=== PATIENT | female | born 1985 | race Caucasian/White ===

== ENCOUNTER 2017-06-21 18:14 | Emergency (ER) | payer SELFPAY ==
[2017-06-21 18:15] VITALS: BP 167/92
[2017-06-21 18:22] VITALS: BMI 23.1
[2017-06-21 19:10] LABS: BILIRUBIN,URINE NEGATIVE (NEGATIVE); BLOOD/HEMOGLOBIN,URINE NEGATIVE (NEGATIVE); GLUCOSE, URINE NEGATIVE (NEGATIVE); KETONES,URINE NEGATIVE (NEGATIVE); LEUKOCYTE ESTERASE ,URINE 1+ (NEGATIVE); NITRITES,URINE POSITIVE (NEGATIVE); PROTEIN,URINE NEGATIVE (NEGATIVE); UROBILINOGEN,URINE NORMAL (NORMAL)
[2017-06-21 19:16] LABS: COLOR,URINE YELLOW (YELLOW)
[2017-06-21 19:17] LABS: APPEARANCE,URINE SLIGHTLY HAZY (CLEAR); BACTERIA,URINE 4+ /HPF (NEGATIVE); RBC,URINE NONE SEEN /HPF (NEGATIVE); SQUAMOUS EPITHELIAL CELL,UR FEW /HPF (NEGATIVE)
[2017-06-21] MEDS ORDERED: TORADOL 30 MG VIAL IVP ONE (19:20)
[2017-06-21] MEDS ORDERED: NS 1000 ML 1,000 ML IV ONE (19:20)
[2017-06-21] MEDS ORDERED: NS 1000 ML 1,000 ML ONE (19:21)
[2017-06-21] MEDS ORDERED: TORADOL 30 MG VIAL ONE (19:21)
--- NOTE | 2017-06-21 19:23 | DR.GENAD ---
HPI - PCP Primary Care Physician: WILLIAM - HPI Comment HPI Comment: Rt. low back and flank pain onset x 3 days ago. She has polyuria, urgency and dysuria. She denies hematuria. She states she's had nausea but no vomitting. There has been no fever or chills. She has self medicated with AZO. - Complaint/Symptoms Chief Complaint:: PT C/O RT LOWER BACK PAIN WITH FLANK PAIN. PT STATES SHE HAS BEEN HAVING THESE PAINS FOR 3 DAYS AND HAS BEEN TAKING AZO. PT STATES HER PAIN IS NOT GETTING ANY BETTER. - Nurses notes reviewed Nurses Notes Review: Yes - Source History Provided: Patient - Mode of Arrival Mode of Arrival: Ambulatory - Timing Onset of Chief Complaint: 06/18/17 Came on: Suddenly - Duration Duration: Since Onset Duration: Days - Modifying Factors Worsens:: nothing Improves:: nothing PMH - PMH Past Medical History: No Past Surgical History: Yes Surgical History: Past Surgical History Comment: BACK - Family History History of Family Medical Conditions: Yes Family Medical History: Diabetes Mellitus, Cancer, [place], Coronary Artery Disease, Hypertension - Social History Does patient currently use any type of tobacco product: Yes Have you used tobacco products in the last 12 months: Yes Does any household member use tobacco: Yes Alcohol Use: None Do you use any recreational Drugs:: No Lives With: Family Lives Where: Home - infectious screening In the last 2 months have you had wt loss of >10#?: NO Have you had fever, night sweats or hemotysis?: No Have you traveled outside the country in the last 6 months?: No Isolation: Standard ROS - Review of Systems Constitutional: No Symptoms Reported Eyes: No Symptoms Reported ENTM: No Symptoms Reported Respiratoy: No Symptoms Reported Cardiovascular: No Symptoms Reported Gastrointestinal/Abdominal: No Symptoms Reported Genitourinary: See HPI, Dysuria, Frequency, Other (right flank pain). negative : Hematuria, Bleeding Neurological: No Symptoms Reported Musculoskeletal: No Symptoms Reported Integumentary: No Symptoms Reported Hematologic/Lymphatic: No Symptoms Reported Endocrine: No Symptoms Reported Psychiatric: No Symptoms Reported All Other Systems: Reviewed and Negative PE - Vital Signs Vitals: Temperature 97.7 F Pulse Rate 95 Respiratory Rate 20 Blood Pressure [Left Arm] 140/92 Blood Pressure 167/92 O2 Sat by Pulse Oximetry 100 - General Limitations: No Limitations General Appearance: Alert, In No Apparent Distress - Head Head Exam: Normal Inspection - Eyes Eye exam: Normal Appearance, PERRL - ENT ENT Exam: Normal Exam, Normal Oropharynx - Neck Neck Exam: Normal Inspection, Full ROM - Chest Chest Inspection: Normal Inspection, Symmetric Chest Wall Rise - Respiratory Respiratory Exam: Normal Lung Sounds Bilat - Cardiovascular Cardiovascular Exam: Regular Rate, Normal Rhythm - Abdominal Exam Abdominal Exam: Normal Inspection, Normal Bowel Sounds, Soft Abdominal Tenderness: Other (Rt. CVA) - Extremities Extremities Exam: Normal Inspection, Full ROM - Back Back Exam: Normal Inspection - Neurologic Neurological Exam: Alert, Oriented X3, CN II-XII Intact, Normal Gait - Psychiatric Psychiatric Exam: Normal Affect, Normal Mood - Skin Skin Exam: Warm, Dry, Intact, Normal Color Course - Education/Counseling Education/Counseling: Patient, Education, Counseling Educated On: Treatment, Diagnosis, Prognosis, Needs for Follow Up ROR - Labs Reviewed Result Diagrams: 06/21/17 19:28 06/21/17 19:28 Laboratory: WBC 6.4 X10^3/uL (3.6-10.0) 06/21/17 19:28 RBC 4.17 X10^6/uL (3.5-5.4) 06/21/17 19:28 Hgb 11.9 g/dL (12.0-16.0) L 06/21/17 19:28 Hct 35.0 % (36.0-47.0) L 06/21/17 19:28 MCV 83.9 fL (80.0-100.0) 06/21/17 19:28 MCH 28.5 pg (27.0-34.0) 06/21/17 19:28 MCHC 33.9 g/dL (33.0-35.0) 06/21/17 19:28 RDW 14.8 % (11.6-16.5) 06/21/17 19:28 Plt Count 248 X10^3/uL (150.0-450.0) 06/21/17 19:28 MPV 7.6 fL (7.4-11.0) 06/21/17 19:28 Neut % 32.4 % (42.0-75.0) L 06/21/17 19:28 Lymph % 52.5 % (21.0-51.0) H 06/21/17 19:28 Spink % 9.8 % (0.0-13.0) 06/21/17 19:28 Eos % 4.7 % (0.9-2.9) H 06/21/17 19:28 Baso % 0.6 % (0.2-1.0) 06/21/17 19:28 Neut # 2.1 x10^3/uL (2.2-4.8) L 06/21/17 19:28 Lymph # 3.4 X10^3/uL (1.3-2.9) H 06/21/17 19:28 Spink # 0.6 x10^3/uL (0.3-0.8) 06/21/17 19:28 Eos # 0.3 x10^3/uL (0.0-0.2) H 06/21/17 19:28 Baso # 0.0 X10^3/uL (0.0-0.1) 06/21/17 19:28 Absolute Nucleated RBC 0.0 /100WBC 06/21/17 19:28 Sodium 141 mmol/L (136-145) 06/21/17 19:28 Corrected Sodium TNP 06/21/17 19:28 Potassium 3.8 mmol/L (3.5-5.1) 06/21/17 19:28 Chloride 105 mmol/L (98-107) 06/21/17 19:28 Carbon Dioxide 26.9 mmol/L (21-32) 06/21/17 19:28 BUN 20 mg/dL (7-18) H 06/21/17 19:28 Creatinine 0.80 mg/dL (0.55-1.02) 06/21/17 19:28 Est GFR (MDRD) Af Amer > 60 (>60) 06/21/17 19:28 Est GFR (MDRD) Non-Af > 60 (>60) 06/21/17 19:28 Glucose 89 mg/dL (65-99) 06/21/17 19:28 Calcium 9.1 mg/dL (8.5-10.1) 06/21/17 19:28 Specimen Type Clean catch urine 06/21/17 19:05 Urine Color Yellow (YELLOW) 06/21/17 19:05 Urine Appearance Slightly hazy (CLEAR) 06/21/17 19:05 Urine pH 7.0 (5.0 - 8.0) 06/21/17 19:05 Ur Specific [place] 1.015 (1.000-1.030) 06/21/17 19:05 Urine Protein Negative (NEGATIVE) 06/21/17 19:05 Urine Glucose (UA) Negative (NEGATIVE) 06/21/17 19:05 Urine Ketones Negative (NEGATIVE) 06/21/17 19:05 Urine Occult Blood Negative (NEGATIVE) 06/21/17 19:05 Urine Nitrite Positive (NEGATIVE) 06/21/17 19:05 Urine Bilirubin Negative (NEGATIVE) 06/21/17 19:05 Urine Urobilinogen Normal (NORMAL) 06/21/17 19:05 Ur Leukocyte Esterase 1+ (NEGATIVE) 06/21/17 19:05 Urine RBC None seen /HPF (NEGATIVE) 06/21/17 19:05 Urine WBC 10-15 /HPF (NEGATIVE) 06/21/17 19:05 Ur Squamous Epith Cells Few /HPF (NEGATIVE) 06/21/17 19:05 Urine Bacteria 4+ /HPF (NEGATIVE) 06/21/17 19:05 Ur Culture Indicated? Yes/culture set up 06/21/17 19:05 - Diagnosis Discharge Problem: Cystitis without hematuria Discharge Problem: (Ruled Out): Acute lower UTI (urinary tract infection) - Discharge Plan Condition: Stable - Follow ups/Referrals Follow ups/Referrals: NFD,None [Primary Care Provider] - 3 days - Instructions
[2017-06-21 19:39] LABS: BASOPHILS % (AUTO) 0.6 % (0.2-1.0); EOSINOPHILS # (AUTO) 0.3 x10^3/uL (0.0-0.2); EOSINOPHILS % (AUTO) 4.7 % (0.9-2.9); HEMOGLOBIN 11.9 g/dL (12.0-16.0); LYMPHOCYTES # (AUTO) 3.4 X10^3/uL (1.3-2.9); LYMPHOCYTES % (AUTO) 52.5 % (21.0-51.0); MEAN CORPUSCULAR HEMOGLOBIN 28.5 pg (27.0-34.0); MEAN CORPUSCULAR HGB CONC 33.9 g/dL (33.0-35.0); MEAN CORPUSCULAR VOLUME 83.9 fL (80.0-100.0); MEAN PLATELET VOLUME 7.6 fL (7.4-11.0); MONOCYTES # (AUTO) 0.6 x10^3/uL (0.3-0.8); MONOCYTES % (AUTO) 9.8 % (0.0-13.0); NEUTROPHILS # (AUTO) 2.1 x10^3/uL (2.2-4.8); NEUTROPHILS % (AUTO) 32.4 % (42.0-75.0); PLATELET COUNT 248 X10^3/uL (150.0-450.0); RED BLOOD COUNT 4.17 X10^6/uL (3.5-5.4); RED CELL DISTRIBUTION WIDTH 14.8 % (11.6-16.5); WHITE BLOOD COUNT 6.4 X10^3/uL (3.6-10.0)
[2017-06-21 19:42] LABS: BLOOD UREA NITROGEN 20 mg/dL (7-18); CALCIUM 9.1 mg/dL (8.5-10.1); CARBON DIOXIDE 26.9 mmol/L (21-32); CHLORIDE 105 mmol/L (98-107); SODIUM 141 mmol/L (136-145); eGFR BLACK RACES > 60 (>60); eGFR NON BLACK RACES > 60 (>60)
[2017-06-21] MEDS ORDERED: CIPRO TAB 500 MG PO ONE ×2 (20:55→21:23)
== END 2017-06-21 21:35 | disposition home or self-care (01) ==
LOC: ER 18:27
DX: N30.90 Cystitis, unspecified without hematuria (principal); B96.29 Other Escherichia coli [E. coli] as the cause of diseases classified elsewhere
CPT/HCPCS: 36415; 80048; 81001; 85025; 87086; 87088; 87186; 96365; 96374; 99282; 99283; A4222; J1885